=== PATIENT | female | born 1995 | race Two or more races ===

== ENCOUNTER 2019-08-11 08:21 | Emergency (ER) | payer MEDICAID ==
[~2019-08-11] VITALS: Ht 175.3 cm; Wt 109.0 kg
[2019-08-11] MEDS ORDERED: IBUPROFEN 600MG TABLET PO ONE (09:00)
[2019-08-11 09:57] VITALS: BP 141/82
== END 2019-08-11 10:15 | disposition home or self-care (01) ==
LOC: ER 08:21
DX: J06.9 Acute upper respiratory infection, unspecified (principal); H92.02 Otalgia, left ear; Z90.49 Acquired absence of other specified parts of digestive tract
CPT/HCPCS: 87070; 87430; 99283